=== PATIENT | male | born 1975 | race African-American/Black ===

== ENCOUNTER → 2021-04-30 | Outpatient (CLI) | payer OTHER ==
[~2021-04-30] MED LIST: FLOMAX0.4 MG PO; PERCOCET 5-3251 EACH PO
== END ==
LOC: CAT 08:11
PROVIDERS: ATTEND Family Medicine
DX: Z13.6 Encounter for screening for cardiovascular disorders (principal); I25.10 Atherosclerotic heart disease of native coronary artery without angina pectoris; E78.00 Pure hypercholesterolemia, unspecified